=== PATIENT | female | born 1965 | race Caucasian/White ===

== ENCOUNTER 2017-05-07 07:12 | Day surgery (SDC) | payer OTHER ==
[2017-05-07 08:01] VITALS: BMI 27.7
[2017-05-07] MEDS ORDERED: Lactated Ringer's 500 ML IV SCH (09:15)
--- NOTE | 2017-05-07 09:15 | CP.SDSHP ---
Same Day Surgery H & P - History Proposed Procedure: COLONSCOPY Pre-Op Diagnosis: SEE NOTES - Previous Medical/Surgical History Misc: Other Pain: 2.Mild Pain - Allergies Allergies: Allergies No Known Allergies Allergy (Verified 01/22/16 10:29) - Physical Exam General Appearance: N Vital Signs: Vital Signs 05/07/17 07:50 Temperature 98.0 F Pulse Rate 71 Respiratory 19 Rate Blood Pressure 123/71 O2 Sat by Pulse 97 Oximetry Mental Status: Alert & Oriented x3 Neuro: WNL Heart: WNL Lungs: WNL GI: WNL - {Optional Preform as Required} Breast: WNL Abdomen: WNL Rectal: Other Integument: WNL : WNL Ortho: WNL ENT: WNL - Impression Pt. Evaluated Today:Candidate for Anesthesia & Procedure: Yes - Date & Time Time: 09:14 Short Stay Discharge - Short Stay Discharge Admitting Diagnosis/Reason for Visit: COLON SCREENING Disposition: HOME/ ROUTINE
[2017-05-07] MEDS ORDERED: Propofol 10 mg/ml Inj (20 ML) ONE (09:16)
[2017-05-07 09:54] VITALS: TEMP 97; O2SAT 100
[2017-05-07] MEDS ORDERED: Belladonna-Phenobarbital PO ONE (10:05)
[2017-05-07 10:16] VITALS: PULSE 61
[2017-05-07 10:36] VITALS: BP 138/74; RESP 74
== END 2017-05-07 10:30 | disposition home or self-care (01) ==
LOC: C.ENDO 07:12
PROVIDERS: ATTEND Specialist
DX: K58.9 Irritable bowel syndrome, unspecified (principal)
CPT/HCPCS: 45380; 84703; 88305; J2704; J7120

== ENCOUNTER 2018-07-09 08:16 | Outpatient (CLI) | payer OTHER | END 2018-07-09 08:17 | disposition home or self-care (01) | LOC: C.USIC 08:17 ==

== ENCOUNTER 2018-07-09 08:23 | Outpatient (CLI) | payer OTHER | END 2018-07-09 08:24 | disposition home or self-care (01) | LOC: C.MAMMO 08:23 ==

== ENCOUNTER 2018-07-23 10:13 | Outpatient (CLI) | payer OTHER | END 2018-07-23 10:14 | disposition home or self-care (01) | LOC: C.MAMMO 10:14 ==

== ENCOUNTER 2018-08-11 15:16 | Outpatient (CLI) | payer OTHER | END 2018-08-11 15:17 | disposition home or self-care (01) | LOC: C.RADIC 15:16 ==